=== PATIENT | male | born 1970 | race Caucasian/White ===

== ENCOUNTER → 2016-10-22 | Outpatient (CLI) | payer OTHER ==
[~2016-10-22] MED LIST: GLUCTAB54 PO; IBUP-103 PO; MULT-506 PO; OMEGCAP2 PO
[2016-10-22 10:09] LABS: BASO % 0.5 %; BASO ABS # 0.02 K/uL (0-0.2); COMPLETE YES; EOS % 2.3 %; LYMPH ABS # 1.51 K/uL (1.2-3.4); MEAN CELL VOLUME 89.3 fL (80-100); MEAN CORPUSCULAR HEMOGLOBIN 32.5 pg (25-34); MEAN CORPUSCULAR HGB CONC 36.4 g/dl (32-36); MEAN PLATELET VOLUME 9.6 fL (7.4-10.4); MONO % 9.5 %; NEUT % 53.7 %; PLATELET COUNT 187 K/uL (130-400); RED BLOOD COUNT 5.04 M/uL (4.7-6.1); WHITE BLOOD COUNT 4.44 K/uL (4.8-10.8)
[2016-10-22 10:29] LABS: ALT/SGPT 94 U/L (12-78); AST/SGOT 41 U/L (15-37); BLOOD UREA NITROGEN 19 mg/dl (7-18); BUN/CREATININE RATIO 17.4 (10-20); CALCIUM 9.1 mg/dl (8.5-10.1); CARBON DIOXIDE 30 mmol/L (21-32); CHLORIDE 102 mmol/L (98-107); GLUCOSE 103 mg/dl (70-99); POTASSIUM 3.7 mmol/L (3.5-5.1); SODIUM 138 mmol/L (136-145)
[2016-10-22 10:34] LABS: ALB/GLOB RATIO 1.1 (0.9-2); ALKALINE PHOSPHATASE 58 U/L (45-117); CHOLESTEROL 267 mg/dl (0-200); CHOLESTEROL/HDL RATIO 4.3; HDL CHOLESTEROL 62 mg/dl; LDL CHOLESTEROL CALCULATED 139 mg/dl; TRIGLYCERIDES 330 mg/dl (0-150); VERY LOW DENSITY LIPOPROT CALC 66 mg/dl
== END | disposition home or self-care (01) ==
LOC: C.LAB1850 08:54
PROVIDERS: ATTEND Nurse Practitioner Adult Health
DX: Z00.00 Encounter for general adult medical examination without abnormal findings (principal); I10 Essential (primary) hypertension; E78.00 Pure hypercholesterolemia, unspecified